=== PATIENT | female | born 1980 | race Caucasian/White ===

== ENCOUNTER 2018-03-19 12:43 | Inpatient (IN) ==
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
[2018-03-19 14:18] LABS: Baso # (Auto) 0.1 th/mm3 (0.0-0.2); Eos # (Auto) 0.2 th/mm3 (0.0-0.4); Eos % (Auto) 2.2 % (0.0-4.0); Hematocrit 42.4 % (35.0-46.0); Lymph % (Auto) 26.6 % (9.0-44.0); Mean Corpuscular HGB Conc 33.1 % (32.0-36.0); Mean Corpuscular Hemoglobin 27.5 pg (27.0-34.0); Mono # (Auto) 0.9 th/mm3 (0.0-0.9); Mono % (Auto) 8.4 % (0.0-8.0); Neut # (Auto) 6.9 th/mm3 (1.8-7.7); Neut % (Auto) 61.8 % (16.0-70.0); Platelet Count 357 th/mm3 (150-450); Red Cell Distribution Width 14.1 % (11.6-17.2); White Blood Count 11.2 th/mm3 (4.0-11.0)
[2018-03-19 14:34] LABS: Alanine Aminotransferase 34 U/L (10-53); Albumin 4.2 g/dL (3.4-5.0); Anion Gap 5 meq/L (5-15); Aspartate Aminotransferase 30 U/L (15-37); Blood Urea Nitrogen 6 mg/dL (7-18); Calcium 8.5 mg/dL (8.5-10.1); Carbon Dioxide 25.9 meq/L (21.0-32.0); Chloride 108 meq/L (98-107); Glomerular Filtration Rate 67 mL/min (>89); Glucose,Random 111 mg/dL (74-106); Potassium 3.6 meq/L (3.5-5.1); Sodium 139 meq/L (136-145)
[2018-03-19 14:45] LABS: Alkaline Phosphatase 86 U/L (45-117); Total Protein 7.4 g/dL (6.4-8.2)
[2018-03-19 17:15] LABS: Bilirubin,Urine Negative (Negative); Clarity,Urine Clear (Clear); Color,Urine Yellow (Yellw/Straw); Glucose,Urine (UA) Negative (Negative); Leukocyte Esterase,Urine Negative (Negative); Nitrite,Urine Negative (Negative); Specific Gravity,Urine 1.009 (1.002-1.035); Squamous Epithelial Cell,Urine 1 /hpf (0-5)
[2018-03-19 17:19] LABS: Amphetamine Screen,Urine Neg (Neg); Barbiturate Screen,Urine Neg (Neg); Cannabinoid Screen,Urine Pos (Neg); Cocaine Screen,Urine Neg (Neg)
[2018-03-19 17:45] LABS: Opiate Screen,Urine Neg (Neg)
[2018-03-19] MEDS ORDERED: Venlafaxine XR 75 MG Capsule PO ONE (22:18)
[2018-03-20] MEDS ORDERED: Aluminum/Magnesium/Simethacone Susp 30 ML UDC PO PRN (07:43)
[2018-03-20] MEDS ORDERED: Bisacodyl 10 MG Supp RECTAL PRN (07:43)
[2018-03-20] MEDS: Senna/Docusate Sodium 8.6/50 MG Tablet PO SCH ×2 (13:51→20:24)
--- NOTE | 2018-03-20 15:45 | P.HPPSY ---
Provisional Diagnosis Admission Date: March 20, 2018 09:20 [place] I.: Major depressive disorder, anxiety, ADHD [place] II.: Cluster B traits Competence Certification of Person's Competence To Provide Express and Informed Consent I have personally examined Jeanne Almanza, a person being served at [facility] on, March 20, 2018 1529. Express and informed consent means consent voluntarily given in writing, by a competent person, after sufficient explanation and disclosure of the subject matter involved to enable the person to make a knowing and willful decision without any element of force, fraud, deceit, duress, or other form of constraint or coercion. This person is 18 years of age or older, is not now known to be incompetent to consent to treatment with a guardian advocate, and does not have a health care surrogate or proxy currently making medical treatment decisions. I have found this person to be one of the following: [] Competent to provide express and informed consent, as defined above, for voluntary admission to this facility and is competent to provide express and informed consent for treatment. He/she has the consistent capacity to make well reasoned, willful, and knowing decisions concerning his or her medical or mental health treatment. The person fully and consistently understands the purpose of the admission for examination/placement and is fully capable of personally exercising all rights assured [place] [] Incompetent to provide express and informed consent to voluntary admission, and this is incompetent to provide express and informed consent to treatment. The person must be transferred to involuntary status and a petition for a guardian advocate filed with the Circuit Court. [] Refusing to provide express and informed consent to voluntary admission but is competent to provide express and informed consent for treatment. The person must be discharged or transferred to involuntary status. Form shall be completed within 24 hours of a person's arrival at the receiving facility and filed in the clinical record of each person: 1. Admitted on a voluntary basis 2. Permitted to provide express and informed consent to his/her own treatment 3. Allowed to transfer from involuntary to voluntary status 4. Prior to permitting a person to consent to his or her own treatment after having been previously found incompetent to consent to treatment. History of Present Illness Capacity: Has capacity History of Present Illness: The patient is a 37-year-old woman, domiciled in [place] with her fianc and 3 kids, self-employed, with a psychiatric history of ADHD, depression, anxiety, cannabis use disorder, no previous psychiatric hospitalizations, she denies previous suicide attempts, outpatient care by Dr. Blanc, she is on Effexor 150 mg, Abilify 5 mg, Adderall 20 mg, Xanax 1 mg 3 times daily, no significant medical history, who was sent here yesterday by Dr. Bravo Blanc, her psychiatrist. The patient had a psychiatrist in [facility], for several years, but she has decided to find another psychiatrist in this area, yesterday was her first day with , she says that he disagrees with her outpatient therapy. On the psychiatric evaluation the patient today is calm, cooperative. She says that she is having a real hard time because in the last weeks she has not been able to take her medications, she was yesterday in an intake with a new psychiatrist, and the psychiatrist does agree with her old regimen. She says that she has been very depressed, she says that she has been talking with another man, her boyfriend became jealous and since then she has been depressed. She thinks that this situation is because she is now taking her medications. She is having thoughts of running into traffic and suicidal ideations. Dr Lamb felt that she was unstable and would need admission. During the evaluation the patient is tearful, she seems to be quite behaviorally/emotionally dysregulated. She agrees with a voluntary psychiatric admission, she wants to restart her medications. She says that the most important medication for her is the Adderall. I told her that this medication most probably is not going to be started in inpatient, but she was interested in the admission anyway to start her antidepressants and antianxiety medications. PPHx: psychiatric history of ADHD, depression, anxiety, no previous psychiatric hospitalizations, she denies previous suicide attempts, outpatient care by Dr. Blanc, she is on Effexor 150 mg, Abilify 5 mg, Adderall 20 mg, Xanax 1 mg 3 times daily, no significant medical history, who was sent here yesterday by Dr. Bravo Blanc, her psychiatrist PMHx: No significant medical history Substance Hx: Cannabis use disorder, she is more cannabis every day drinks alcohol occasionally Family Hx: Her mother has bipolar disorder and dementia Social Hx: The patient was born and raised in [facility], she losing [place] with her fianc, she has 3 kids, she is self-employed, her highest level of education is to bachelor degree - Inpatient Certification I certify that the inpatient services were ordered in accordance with Medicare regulations governing the order. This includes certification that hospital inpatient services are reasonable and necessary and in the case of services not specified as inpatient-only under 42 CFR 419.22(n), that they are appropriately provided as inpatient services in accordance to with the 2-midnight benchmark under 43 CFR 412.3(e) I certify that inpatient psychiatric hospital services are medically necessary. Evaluation and treatment and/or diagnostic testing are expected to improve the patient's condition. The patient needs on a daily basis, active treatment furnished directly by or requiring the supervision of inpatient psychiatric facility personnel. Estimated Total Length of Stay (Days): 7 Plans for Post Hospital Care: Home Review of Systems All other systems reviewed negative except as stated in HPI Psychiatric: Reports anxiety, Reports change in appetite, Reports depression, Reports hopelessness, Reports mood swings, Reports thoughts of hurting/killing yourself PMFSH - History History Provided By: Patient - Tobacco History Second Hand Smoke Exposure: Yes Tobacco Use In Past 30 Days: Yes Smoking Status: Current every day smoker Tobacco Type: Cigarettes - Alcohol History How Often Do You Have a Drink Containing Alcohol: 2 to 4 times a month - Substance Use History Substance History: Active Abuse - Substance Use Type Marijuana Status: Active Route Used: Inhalation Frequency: Daily use Reason for Use: Calm Down - Travel History Recent Travel in the [place] Within the Last 8 Weeks: No Recent Travel Out of the Country Within the Last 8 Weeks: No - Immunization History Tetanus Immunization: Unsure Medications and Allergies Active Medications: Active Medications Al Hydrox/Mg Hydrox/Simethicone (Mag-Al Plus Susp Liq) 30 ml PO Q6H PRN PRN Reason: DYSPEPSIA Al Hydroxide/Mg Hydroxide (Milk Of Magnesia Liq) 30 ml PO Q12H PRN PRN Reason: Mild Constipation Bisacodyl (Dulcolax Supp) 10 mg RECTAL DAILY PRN PRN Reason: SEVERE CONSITIPATION Lactulose (Lactulose Liq) 30 ml PO DAILY PRN PRN Reason: SEVERE CONSITIPATION Senna/Docusate Sodium (S[place]-Colace) 1 tab PO BID GENET Last Admin: 03/20/18 13:51 Dose: Not Given Sennosides (Senokot) 17.2 mg PO Q12H PRN PRN Reason: Moderate Constipation Allergies Allergy/AdvReac Type Severity Reaction Status Date / Time No Known Allergies Allergy Verified 03/19/18 13:51 Home Medications Medication Instructions Recorded Confirmed Type alprazolam [Xanax] 0.5 mg PO DAILY 03/19/18 03/19/18 History aripiprazole [Abilify] 5 mg PO DAILY 03/19/18 03/19/18 History bupropion HCl [Wellbutrin SR] 100 mg PO DAILY 03/19/18 03/19/18 History dextroamphetamine-amphetamine 20 mg PO DAILY 03/19/18 03/19/18 History [Adderall XR] venlafaxine [Effexor XR] 150 mg PO HS 03/19/18 03/19/18 History Results - Labs CBC & Chem 7: 03/19/18 14:07 03/19/18 14:07 Labs: Laboratory Results - last 24 hr 03/19/18 03/19/18 16:47 16:47 Urine Color Yellow Urine Clarity Clear Urine pH 7.0 Ur Specific [place] 1.009 Urine Protein Negative Urine Glucose (UA) Negative Urine Ketones Negative Urine Occult Blood Negative Urine Nitrate Negative Urine Bilirubin Negative Urine Urobilinogen Less than 2 Ur Leukocyte Esterase Negative Urine RBC 2 Urine WBC 1 Ur Squamous Epith Cells 1 Micro UA Comment Culture not ind Ur Microscopic Review Not Reportable Urine Culture Comments Culture not ind Urine Opiates Screen Neg Ur Barbiturates Screen Neg Ur Amphetamines Screen Neg U Benzodiazepines Scrn Neg Urine Cocaine Screen Neg U Cannabinoids Screen Pos H Exam Vital signs: Vital Signs 03/19/18 17:44 03/19/18 22:24 03/20/18 04:25 Temperature 98.6 F 98.5 F Pulse Rate 74 88 82 Respiratory Rate 16 18 18 Blood Pressure 144/86 H 118/59 L 106/59 L Pulse Oximetry 99 98 97 Intake & Output 03/19/18 03/20/18 03/20/18 18:59 06:59 18:59 Weight 90.718 kg Narrative: No psychomotor agitation retardation, no EPS, no withdrawal symptoms, no stiffness, no catatonia - Constitutional no acute distress - Routine HEENT Exam Head: Present: normocephalic, atraumatic Eye: Present: EOMI, PERRL ENT: Present: mucous membranes moist Mental Status Examination Appearance: Appropriate Consciousness: Alert Orientation: x4 Motor Activity: Normal gait Speech: Unremarkable Language: Adequate Fund of Knowledge: Adequate Attention and Concentration: Adequate Memory: Unremarkable Mood: Sad Affect: Sad Thought Process & Associations: Intact Thought Content: Appropriate Hallucination Type: None Delusion Type: None Suicidal Ideation: Yes Suicidal Plan: No Suicidal Intention: No Homicidal Ideation: No Homicidal Plan: No Homicidal Intention: No Insight: Adequate Judgment: Adequate Assessment and Plan - Assessment (1) Major depress dis, severe Code(s): F32.2 - Major depressive disorder, single episode, severe without psychotic features Status: Acute - Plan Plan: On psychiatric evaluation today the patient presents with symptoms of depression in the context of no compliant medications, marital problems. She reports that in the last week she has been having mood swings, changes in her behavior, with hopelessness, helplessness, and suicidal ideation with a plan of jumping in front of traffic. The patient has a psychiatric history of depression, ADHD, PTSD, no prepsychotic hospitalizations, she denies previous suicide attempts, she was managed for a long time by a private psychiatrist in [place], has recently changed to a new psychiatrist in [facility], but in their first encounter the psychiatrist does agree with her medication regimen. The patient claims that she has being on Adderall 20 mg, Xanax 1 mg 4 times per day, Abilify 5 mg, Effexor 150 mg. During my evaluation I do perceive a little flavor of drug-seeking behavior. Also cluster B personality traits. Given the elevated risk of danger to self, she is going to be admitted, she will be voluntary. I am restarting the Effexor 75 mg daily, Abilify 5 mg, Benadryl 25 mg 3 times per day for anxiety. Will wait for confirmation from private psychiatrist to restart narcotics. Extensive support, motivational psychoeducation provided. Justification for Continued Inpatient Stay: To be admitted.
[2018-03-20] MEDS: Ibuprofen 600 MG Tablet PO PRN (20:43)
[2018-03-20] MEDS: Venlafaxine XR 75 MG Capsule PO SCH (21:09)
[2018-03-21] MEDS: Senna/Docusate Sodium 8.6/50 MG Tablet PO SCH ×2 (08:53→20:41)
[2018-03-21] MEDS ORDERED: Venlafaxine XR 75 MG Capsule PO SCH (09:00)
[2018-03-21 10:59] LABS: Calcium 8.2 mg/dL (8.5-10.1); Carbon Dioxide 27.5 meq/L (21.0-32.0); Potassium 4.1 meq/L (3.5-5.1)
[2018-03-21 11:02] LABS: Chol/HDL Ratio 5.31 Ratio; HDL Cholesterol 44.4 mg/dL (40.0-60.0)
[2018-03-21 13:50] LABS: Hemoglobin A1c 5.7 % (4.3-6.0)
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
[2018-03-21] MEDS: Ibuprofen 600 MG Tablet PO PRN (20:40)
[2018-03-21] MEDS: Venlafaxine XR 75 MG Capsule PO SCH (20:40)
[2018-03-22] MEDS: Senna/Docusate Sodium 8.6/50 MG Tablet PO SCH ×2 (08:48→20:28)
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
[2018-03-22] MEDS: Venlafaxine XR 75 MG Capsule PO SCH (20:27)
[2018-03-22] MEDS: Ibuprofen 600 MG Tablet PO PRN (20:35)
[2018-03-23] MEDS: Senna/Docusate Sodium 8.6/50 MG Tablet PO SCH ×2 (08:35→20:40)
--- NOTE | 2018-03-23 12:21 | P.PNPSY ---
Subjective Remarks: Patient is seen with nurse Wanda. EMR reviewed. Patient reports she slept well, eating well. She remains anxious. Has not requested the Atarax. States that she lacks energy and motivation and attributes to not taking the Adderall. Has tolerated the Effexor well. She has concerns regarding current medications. After discussion with patient as well as with Dr. Cummings will initiate Abilify for mood stabilization.Will try staying away from benzos , if possible. Denies current suicidal ideation. Discussion with patient regarding medications, risks benefits and side effects. Will consult hospitalist for abnormal labs. Review of Systems All other systems reviewed negative except as stated in HPI Mental Status Examination Appearance: Appropriate Consciousness: Alert Orientation: x4 Motor Activity: Normal gait Speech: Unremarkable Language: Adequate Fund of Knowledge: Adequate Attention and Concentration: Adequate Memory: Unremarkable Mood: Sad, Anxious Affect: Sad, Other (tearful) Thought Process & Associations: Intact, Logical, Goal directed Thought Content: Appropriate Hallucination Type: None Delusion Type: None Suicidal Ideation: No (denies today) Suicidal Plan: No Suicidal Intention: No Homicidal Ideation: No Homicidal Plan: No Homicidal Intention: No Insight: Adequate Judgment: Adequate Assessment and Plan - Assessment (1) Major depress dis, severe Code(s): F32.2 - Major depressive disorder, single episode, severe without psychotic features Status: Acute - Plan Plan: 1. Add Abilify 2.5 mg po q day for mood stabilization 2. Instructed patient to request Atarax for anxiety as needed. 3. Consult [facility] for abnormal labs. Justification for Continued Inpatient Stay: Medications are being adjusted. Patient may decompensate at lower level of care.
[2018-03-23] MEDS: ARIPiprazole 2 MG Tablet PO SCH (13:48)
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
[2018-03-23] MEDS: Venlafaxine XR 75 MG Capsule PO SCH (20:40)
[2018-03-24 05:50] VITALS: BP 114/73; PULSE 73; RESP 17; TEMP 98.1; O2SAT 98
[2018-03-24] MEDS: ARIPiprazole 2 MG Tablet PO SCH (08:24)
[2018-03-24] MEDS: Senna/Docusate Sodium 8.6/50 MG Tablet PO SCH (08:24)
--- NOTE | 2018-03-24 12:41 | P.TTN ---
- Patient Problems Problems: 1. Discharge planning 2. Medication compliance 3. Knowledge deficit 4. Lack of coping skills - Progress Toward Goals Provider Present: Dr. Dejan Chirinos (Will get collateral information. Covering this patient for [place].) Psychiatric Counselors Present: Massimo Aparicio Jr., [facility] (counselor will meet with patient to discuss safe D/C plan) Group Spec/RT/OT/NOWAK Present: ELIU Owens (Pt. attends select groups) - Documentation Teaching Recipient: Patient
--- NOTE | 2018-03-24 14:43 | P.DSPSY ---
Psychiatry Discharge Summary Inpatient Psychiatric care?: Yes Advance Directives: No Reason for Unknown:: Other Mental Health Advance Directive: No Health Care Proxy: No - Admission Admission Date: March 20, 2018 09:20 - Admission Diagnosis (1) Major depress dis, severe Code(s): F32.2 - Major depressive disorder, single episode, severe without psychotic features Brief History: The patient is a 37-year-old woman, domiciled in [place] with her fianc and 3 kids, self-employed, with a psychiatric history of ADHD, depression, anxiety, cannabis use disorder, no previous psychiatric hospitalizations, she denies previous suicide attempts, outpatient care by Dr. Blanc, she is on Effexor 150 mg, Abilify 5 mg, Adderall 20 mg, Xanax 1 mg 3 times daily, no significant medical history, who was sent here yesterday by Dr. Bravo Blanc, her psychiatrist. The patient had a psychiatrist in [facility], for several years, but she has decided to find another psychiatrist in this area, yesterday was her first day with , she says that he disagrees with her outpatient therapy. On the psychiatric evaluation the patient today is calm, cooperative. She says that she is having a real hard time because in the last weeks she has not been able to take her medications, she was yesterday in an intake with a new psychiatrist, and the psychiatrist does agree with her old regimen. She says that she has been very depressed, she says that she has been talking with another man, her boyfriend became jealous and since then she has been depressed. She thinks that this situation is because she is now taking her medications. She is having thoughts of running into traffic and suicidal ideations. Dr Lamb felt that she was unstable and would need admission. During the evaluation the patient is tearful, she seems to be quite behaviorally/emotionally dysregulated. She agrees with a voluntary psychiatric admission, she wants to restart her medications. She says that the most important medication for her is the Adderall. I told her that this medication most probably is not going to be started in inpatient, but she was interested in the admission anyway to start her antidepressants and antianxiety medications. PPHx: psychiatric history of ADHD, depression, anxiety, no previous psychiatric hospitalizations, she denies previous suicide attempts, outpatient care by Dr. Blanc, she is on Effexor 150 mg, Abilify 5 mg, Adderall 20 mg, Xanax 1 mg 3 times daily, no significant medical history, who was sent here yesterday by Dr. Bravo Blanc, her psychiatrist PMHx: No significant medical history Substance Hx: Cannabis use disorder, she is more cannabis every day drinks alcohol occasionally Family Hx: Her mother has bipolar disorder and dementia Social Hx: The patient was born and raised in [facility], she losing [place] with her [place], she has 3 kids, she is self-employed, her highest level of education is to bachelor degree Tobacco Use In Past 30 Days: Yes How Often Do You Have a Drink Containing Alcohol: 2 to 4 times a month Hospital Course: Patient was admitted to a locked, inpatient psychiatric unit. A general medical consultation was obtained. Appropriate precautions were in place throughout patient's hospital stay. Patient was seen and examined on the unit by psychiatry and also visited by counselor. Psychotropic medications were adjusted. Patient had improvement in presenting psychiatric symptomatology during the course of her hospital stay. There was no evidence of any suicidality or homicidality on the inpatient unit. There was no evidence of self-care deficit. On the day of discharge: Patient seen and examined with nurse in coverage for Dr. Wilson, who is the assigned attending. Chart reviewed. Case discussed with nursing staff. No behavioral issues noted. Case discussed in treatment team. Therapists note patient is attending groups. Case discussed with counselor who has obtained collateral information from the patient's tana Bains. Counselor relates that [facility] is advocating for the patient's discharge today and reportedly has no safety concerns about the patient being discharged home today. On my examination today, the patient is requesting discharge from the inpatient psychiatric unit today. She denies any suicidal or homicidal ideation, intent or plan. She says that she wants to live for her children and pets. Mood is reportedly good, and I can elicit no severe depressive or hypomanic/manic symptoms. She reports that she feels more hopeful versus initial presentation. She denies any audiovisual hallucinations. I can elicit no delusional material. There is no evidence of impairment in reality construction. She denies a history of suicide attempts. She denies a family history of suicide. She denies any access to guns or firearms. She denies any side effects from medications. She has no physical complaints. Weighing the relevant factors and based on the available evidence, I housing court judge that the patient does not meet criteria for involuntary psychiatric hospitalization. There is no evidence of imminent risk of harm to self or others, nor is there evidence of self-care deficit to substantiate involuntary psychiatric hospitalization. The patient is requesting discharge from the inpatient psychiatric unit today, and I have no basis to retain her over her objection. Patient will therefore be discharged home with psychiatric follow-up as arranged by counselor. Patient is also to follow up with primary care. I have counseled the patient to abstain from substances of abuse. I have counseled the patient regarding warning signs for need to return to the psychiatric emergency room as part of a general safety plan. - Discharge Discharge Date: 03/24/18 - Discharge Diagnosis (1) Major depressive disorder, recurrent, in partial remission Diagnosis: Principal Code(s): F33.41 - Major depressive disorder, recurrent, in partial remission Status: Acute Discharge Disposition: Home - Discharge Instructions Discharge Diet: Heart Healthy Diet Activities You Can Perform: Weight Bearing As Tolerat - Discharge Time > 30 minutes Mental Status Examination Appearance: Appropriate Consciousness: Alert Orientation: x4 Motor Activity: Other (No motor abnormalities noted) Speech: Unremarkable Language: Adequate Fund of Knowledge: Adequate Attention and Concentration: Adequate Memory: Unremarkable Mood: Appropriate, Good Affect: Appropriate (Full and reactive) Thought Process & Associations: Intact, Logical, Goal directed, Linear Thought Content: Appropriate Hallucination Type: None Delusion Type: None Suicidal Ideation: No Suicidal Plan: No Suicidal Intention: No Homicidal Ideation: No Homicidal Plan: No Homicidal Intention: No Insight: Adequate Judgment: Adequate Discharge/Advance Care Plan - Results Vital Signs: Last Vital Signs Temp 98.1 F 03/24/18 05:49 Pulse 73 03/24/18 05:49 Resp 17 03/24/18 05:49 BP 114/73 03/24/18 05:49 Pulse Ox 98 03/24/18 05:49 Lab Results: Laboratory Results Hemoglobin A1c 5.7 % (4.3-6.0) 03/21/18 10:06 Triglycerides 176 mg/dL (42-150) H 03/21/18 10:06 Cholesterol 236 mg/dL (120-200) H 03/21/18 10:06 LDL Cholesterol, Calc 156 mg/dL (0-99) H 03/21/18 10:06 HDL Cholesterol 44.4 mg/dL (40.0-60.0) 03/21/18 10:06 TSH 2.010 uIU/mL (0.358-3.740) 03/19/18 14:07 Urine Culture Comments Culture not ind 03/19/18 16:47 Summary of Procedures: None done Pending Results: None - Medications Number of antipsychotic medications at discharge: 1 - Discharge Care Plan Goals to Promote Your Health: * To prevent worsening of your condition and complications * To maintain your health at the optimal level Directions to Meet Your Goals: Take your medications as prescribed Follow your dietary instruction Follow activity as directed Keep your appointments as scheduled Take your immunizations and boosters as scheduled If your symptoms worsen call your PCP, if no PCP go to Urgent Care Center or Emergency Room For 23/12 questions related to your inpatient stay or results of tests pending at discharge, please contact Dr. Colin Chirinos MD at Smoking is Dangerous to Your Health. Avoid second hand smoking
== END 2018-03-24 17:00 | disposition home or self-care (01) ==
LOC: NEPJ 12:43 → NEDA 03-20 09:20 → H260 03-20 10:22
PROVIDERS: ADMIT Psychiatry & Neurology Psychiatry; ATTEND Psychiatry & Neurology Psychiatry